=== PATIENT | male | born 1965 | race Caucasian/White ===

== ENCOUNTER 2016-03-10 21:07 | Observation (INO) | payer BC ==
[~2016-03-10] VITALS: Ht 177.8 cm; Wt 132.4 kg
[2016-03-10] MEDS ORDERED: ASPIRIN 81 MG CHEW TAB ONE (21:27)
[2016-03-10] MEDS ORDERED: NITROGLYCERIN SL 0.4 MG TAB SL ONE (21:27)
[2016-03-10] MEDS ORDERED: NITROGLYCERIN 2% OINT 1 INCH PKT TOPICAL ONE (22:03)
[2016-03-10] MEDS ORDERED: ONDANSETRON 4 MG VIAL ONE (22:03)
[2016-03-10] MEDS ORDERED: DILAUDID 1 MG/ML AMP ONE (22:03)
[2016-03-10] MEDS ORDERED: FONDAPARINUX 2.5 MG SYR SUBQ ONE (22:31)
[2016-03-10] MEDS ORDERED: TRAMADOL 50 MG TAB PO PRN (22:55)
[2016-03-10] MEDS ORDERED: DOCUSATE SOD 100 MG CAP PO PRN (22:55)
[2016-03-10] MEDS ORDERED: MORPHINE 2 MG/ML SYR IV PRN (22:55)
[2016-03-10] MEDS ORDERED: NITROGLYCERIN 50 MG/250 ML IV PRN (22:55)
[2016-03-10] MEDS ORDERED: TEMAZEPAM 15 MG CAP PO PRN (22:55)
[2016-03-10] MEDS ORDERED: SALINE FLUSH 10 ML FLUSH PRN (22:55)
[2016-03-10] MEDS ORDERED: ASPIRIN 81 MG CHEW TAB PO ONE (22:55)
[2016-03-10] MEDS ORDERED: LORAZEPAM 0.5 MG TAB PO PRN (22:55)
[2016-03-10] MEDS ORDERED: ACETAMINOPHEN 325 MG TAB PO PRN (22:55)
[2016-03-10] MEDS ORDERED: NITROGLYCERIN SL 0.4 MG TAB SL PRN (22:55)
[2016-03-10] MEDS ORDERED: ONDANSETRON 4 MG VIAL IV PRN (22:55)
[2016-03-10] MEDS ORDERED: SODIUM CHLORIDE 0.9% FLUSH BAG 500 ML IV PRN (22:55)
[2016-03-11] VITALS (7 sets, daily range): BP systolic 110–118; RESP 16–20; TEMP 97.5–97.8; Ht 177.8 cm; Wt 132.4 kg
[2016-03-11] MEDS: NITROGLYCERIN 2% OINT 1 INCH PKT TOPICAL SCH ×3 (05:55→12:18)
[2016-03-11] MEDS ORDERED: ASPIRIN EC 81 MG TAB PO SCH (08:00)
[2016-03-11] MEDS ORDERED: SALINE FLUSH 10 ML FLUSH SCH (08:00)
[2016-03-11] MEDS ORDERED: GLIMEPIRIDE 1 MG TAB PO SCH (10:20)
[2016-03-11] MEDS ORDERED: DESVENLAFAXINE SUCCINATE PO SCH (10:20)
[2016-03-11] MEDS ORDERED: ACETAMINOPHEN 500 MG TAB PO SCH (10:20)
[2016-03-11] MEDS ORDERED: LISINOPRIL 2.5 MG TAB PO SCH (10:20)
[2016-03-11] MEDS ORDERED: [UNRECOGNIZED DRUG - OTHER] PO SCH (10:20)
[2016-03-11] MEDS ORDERED: SITAGLIPTIN 50 MG TAB PO SCH (10:20)
[2016-03-11] MEDS ORDERED: MAALOX 30 ML, LIDOCAINE 2% VISC 10 ML PO ONE ×2 (10:25)
[2016-03-11] MEDS ORDERED: CYANOCOBA 500 MCG TAB PO SCH (10:27)
[2016-03-11] MEDS ORDERED: [UNRECOGNIZED DRUG - REMARK] XX SCH (10:29)
[2016-03-11] MEDS ORDERED: FONDAPARINUX 2.5 MG SYR SUBQ SCH (22:00)
[2016-03-12] MEDS ORDERED: ASPIRIN 81 MG CHEW TAB PO SCH (09:00)
== END 2016-03-11 10:22 | disposition home or self-care (01) ==
LOC: ER 21:07 → ENPENDDIS 22:39 → EMR 22:39 → PCU2 03-11 00:31
PROVIDERS: ADMIT Internal Medicine Cardiovascular Disease; ATTEND Internal Medicine Cardiovascular Disease
DX: R07.9 Chest pain, unspecified (principal); E11.9 Type 2 diabetes mellitus without complications; Z79.84 Long term (current) use of oral hypoglycemic drugs; M19.90 Unspecified osteoarthritis, unspecified site; I10 Essential (primary) hypertension; M54.12 Radiculopathy, cervical region; M54.16 Radiculopathy, lumbar region; G47.30 Sleep apnea, unspecified; Z79.82 Long term (current) use of aspirin; Z87.891 Personal history of nicotine dependence; I25.10 Atherosclerotic heart disease of native coronary artery without angina pectoris
CPT/HCPCS: 36415; 71010; 80053; 80061; 82550; 82553; 83690; 83735; 84484; 85025; 85610; 85730; 93005; 94799; 96372; 96374; 96375